=== PATIENT | female | born 1990 | race African-American/Black ===

== ENCOUNTER 2017-06-04 09:21 | Emergency (ER) | payer OTHER ==
[~2017-06-04] VITALS: Ht 157.5 cm; Wt 87.5 kg
--- NOTE | ~2017-06-04 | EKG ---
[address] [address] ELECTROCARDIOGRAM REPORT Name: NATHANAEL LACY Room #: 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
[~2017-06-04 09:21] MED LIST: IRON325 PO; MACROBID 100 M100 M1 PO; TRINATE TABLET1 TAB PO
[2017-06-04 11:33] LABS: ABSOLUTE NEUTROPHILS 6.3 thou/uL (1.4-8.2); BASOPHILS 0.6 % (0.0-2.0); EOSINOPHILS 3.1 % (0.0-3.0); HEMATOCRIT 35.6 % (37.0-47.0); HEMOGLOBIN 11.4 gm/dL (12.0-15.0); LYMPHOCYTES 25.8 % (24.0-44.0); MCHC 32.2 g/dL (28.0-37.0); MCV 74.6 fL (80.0-100.0); MONOCYTES 6.3 % (1.0-8.0); PLATELET COUNT 361 thou/uL (150-400); POLYS 64.2 % (36.0-66.0); RBC 4.77 mil/uL (4.20-5.00); RDW 15.1 % (10.5-14.5); WBC 9.8 thou/uL (4.0-11.0)
[2017-06-04 11:42] LABS: ANION GAP 7 mmol/L (7-16); BUN 11 mg/dL (7-18); CHLORIDE 104 mmol/L (98-107); CO2 27 mmol/L (21-32); CREATININE 0.6 mg/dL (0.6-1.0); GLUCOSE 97 mg/dL (74-106); POTASSIUM 3.9 mmol/L (3.5-5.1); SODIUM 138 mmol/L (136-145)
[2017-06-04 11:50] LABS: TROPONIN-I < 0.04 ng/mL (<0.06)
[2017-06-04] MEDS ORDERED: NAPROSYN500 MG PO (13:51)
== END 2017-06-04 13:42 | disposition home or self-care (01) ==
LOC: ER 09:21
PROVIDERS: Nurse Practitioner Family
DX: M94.0 Chondrocostal junction syndrome [Tietze] (principal)

== ENCOUNTER 2018-08-14 10:42 | Emergency (ER) | payer OTHER ==
[~2018-08-14] VITALS: Ht 157.5 cm; Wt 87.5 kg
[~2018-08-14 10:42] MED LIST changes: +NAPROSYN500 MG PO
[2018-08-14] MEDS ORDERED: ONDANSETRON HCL4 M2 PO ×2 (11:07→12:09)
[2018-08-14 12:01] LABS: URINE BILIRUBIN NEGATIVE (Negative); URINE BLOOD 1+ (Negative); URINE CLARITY CLEAR; URINE COLOR YELLOW; URINE GLUCOSE-RANDOM* NEGATIVE (Negative); URINE KETONES NEGATIVE (Negative); URINE NITRITE-REFLEX NEGATIVE (Negative); URINE PROTEIN (DIPSTICK) NEGATIVE (Negative); URINE SPECIFIC GRAVITY 1.025 (1.005-1.035); URINE UROBILINOGEN 0.2 E.U./dl (0.2-1.0)
[2018-08-14 12:02] LABS: URINE LEUKOCYTES-REFLEX 1+ (Negative)
[2018-08-14 12:07] LABS: SQUAMOUS 0-3 Few /LPF (0-3); URINE RBC 0-2 Rare /HPF (0-2); URINE WBC-REFLEX 0-5 Rare /HPF (0-5)
[2018-08-14 12:08] LABS: BACTERIA-REFLEX 1-9 Few /HPF (None Seen); CASTS None Seen /LPF (None Seen); CRYSTALS None Seen /LPF (None Seen)
[2018-08-14] MEDS ORDERED: VITAFOL-OB+DHA1 EACH PO (12:09)
[2018-08-14 12:32] VITALS: BP 109/61
== END 2018-08-14 12:32 | disposition home or self-care (01) ==
LOC: ER 10:42
PROVIDERS: Physician Assistant
DX: O9A.211 Injury, poisoning and certain other consequences of external causes complicating pregnancy, first trimester (principal); S16.1XXA Strain of muscle, fascia and tendon at neck level, initial encounter; O26.891 Other specified pregnancy related conditions, first trimester; R10.30 Lower abdominal pain, unspecified; Z3A.00 Weeks of gestation of pregnancy not specified; V89.2XXA Person injured in unspecified motor-vehicle accident, traffic, initial encounter; Y93.I9 Activity, other involving external motion; Y92.410 Unspecified street and highway as the place of occurrence of the external cause; Y99.8 Other external cause status